=== PATIENT | male | born 1985 | race Caucasian/White ===

== ENCOUNTER 2017-03-12 08:30 | Emergency (ER) | payer MEDICAID ==
[~2017-03-12] VITALS: Ht 170.2 cm; Wt 71.0 kg
[~2017-03-12 08:30] MED LIST: TRAM50TA2 PO
[2017-03-12 08:34] VITALS: Ht 170.2 cm; Wt 71.0 kg
[2017-03-12] MEDS ORDERED: HYDROCODONE/APAP (5/325) TAB PO ONE (09:00)
[2017-03-12] MEDS ORDERED: IBUPROFEN 600 MG TAB PO ONE (09:00)
--- NOTE | 2017-03-12 09:27 | RADRPT ---
PROCEDURE: Left knee radiographs. CLINICAL INDICATION: Trauma due to a soccer injury. Left knee pain. TECHNIQUE: Three views. Weight bearing. Frontal, lateral, and Oblique. COMPARISON: No prior studies are available for comparison. FINDINGS: There is no fracture or dislocation. The soft tissues are normal. Articular surfaces are intact. There is no lytic or blastic lesion. There is no radiopaque foreign body. IMPRESSION: 1. Normal images of the left knee. RPTAT: QQ .Rob Rebollar MD, Date Time Electronically viewed and signed by .Rob Rebollar MD, on 03/12/2017 09:27 .R/
[2017-03-12] MEDS ORDERED: HYDR-906 PO (09:33)
[2017-03-12] MEDS ORDERED: IBUP-1542 PO (09:33)
--- NOTE | 2017-03-12 09:47 | ERD ---
ER Documentation Chief Complaint Chief Complaint LEFT KNEE PAIN X2 WKS, WORSE AFTER PLAYING SOCCER YESTERDAY HPI 32-year-old male presents with noncontact left lateral knee pain for 2 weeks worse since last night. The pain is sharp, worse when he flexes it, better with extension at the left lateral aspect of the knee, and is worse with weightbearing. The patient states that he was playing soccer but denies any contact to the knee. He denies any fevers or chills. ROS All systems reviewed and are negative except as per history of present illness. Medications Home Meds Active Scripts Ibuprofen* (Motrin*) 600 Mg Tab, 600 MG PO Q6, #30 TAB Prov:EVELINA BENDER PA-C 03/12/17 Hydrocodone/Acetaminophen (Truxton 5-325 Tablet) 1 Each Tablet, 1 TAB PO Q6H Y for PAIN, #7 TAB Prov:EVELINA BENDER PA-C 03/12/17 Tramadol HCl (Tramadol HCl) 50 Mg Tablet, 50 MG PO Q6, #20 TAB Prov:VIVIEN JAMES MD 08/23/15 Allergies Allergies: Coded Allergies: No Known Allergy (Unverified , 08/23/15) PMhx/Soc History of Surgery: No Anesthesia Reaction: No Hx Neurological Disorder: No Hx Respiratory Disorders: No Hx Cardiac Disorders: No Hx Psychiatric Problems: No Hx Miscellaneous Medical Probl: No Hx Alcohol Use: Yes (occas) Hx Substance Use: No Hx Tobacco Use: No Smoking Status: Never smoker Physical Exam Vitals Vital Signs Date Time Temp Pulse Resp B/P Pulse Ox O2 Delivery O2 Flow Rate FiO2 03/12/17 08:34 98.1 70 18 144/89 98 Physical Exam General: Well-developed, well-nourished. The patient appears in no acute distress. HEENT: Head is normocephalic, atraumatic. No scleral icterus. Neck: Supple. Nontender. Lungs: Clear to auscultation. Normal air movement. Heart: Regular rate and rhythm. S1 and S2 are normal. No murmurs, gallops, or rubs. Abdomen: Nondistended. Extremities: Left lateral knee tenderness palpation, small effusion that can be appreciated at the lateral aspect, it is above the greater tubercle, there is no tenderness or bony deformity to the greater tubercle or tibial tuberosity. There is no joint line tenderness. Patient allows for passive range of motion Neurologic: Alert and oriented 3. No focal deficits. Normal speech and gait. Skin: Normal turgor. No rash or lesions. Results 24 hrs Current Medications Medications (Trade) Dose Ordered Sig/Vandana Route PRN Reason Start Time Stop Time Status Last Admin Dose Admin Acetaminophen/ Hydrocodone Bitart (Truxton (5/325)) 1 tab ONCE ONCE PO 03/12/17 09:00 03/12/17 09:01 DC Ibuprofen (Motrin) 600 mg ONCE ONCE PO 03/12/17 09:00 03/12/17 09:01 DC DIAGNOSTIC IMAGING REPORT Patient: JUAN PABLO LEVY : 1985 Age: 32 Sex: M MR #: [id number] DOS: 03/12/17 0847 Ordering MD: EVELINA BENDER PA-C Location: [facility] Room/Bed: PROCEDURE: Left knee radiographs. CLINICAL INDICATION: Trauma due to a soccer injury. Left knee pain. TECHNIQUE: Three views. Weight bearing. Frontal, lateral, and Oblique. COMPARISON: No prior studies are available for comparison. FINDINGS: There is no fracture or dislocation. The soft tissues are normal. Articular surfaces are intact. There is no lytic or blastic lesion. There is no radiopaque foreign body. IMPRESSION: 1. Normal images of the left knee. RPTAT: QQ .Rob Rebollar MD, Date Time Electronically viewed and signed by .Rob Rebollar MD, on 03/12/2017 09:27 .R/ CC: EVELINA BENDER PA-C Procedures/MDM ED course: Patient was given ibuprofen and Truxton. Patient's left knee was placed in a knee immobilizer and he was given crutches to be weightbearing as tolerated. Splint Assessment: Neurovascularly intact post splint placement with good fit. Medical decision makin-year-old male presents with left-sided knee pain, is at the lateral aspect. No bony deformities, no acute fracture dislocation. There is no warmth erythema to indicate a septic joint, he does allow for passive range of motion. Patient's examination is most consistent with a knee sprain, he was placed in a knee immobilizer and crutches, and was advised to follow-up with orthopedics by the end of this week. Departure Diagnosis: Primary Impression: Knee pain Condition: Good Patient Instructions: Knee Sprain Referrals: TRUNG DONG MD Additional Instructions: [facility]TOPED[facility] Specialist:Usted tiene chris condicin mdica que requiere que stacey a un especialista dentro de los prximos 1-2 julien.POR FAVOR,CON MOORE SEGUIMIENTO DE PRIMARIA PHSICIAN refferal. SI USTED NO TIENE UN MDICO GENERAL Y / O USTED NO PUEDE PAGAR paul a un mdico,los siguientes ash RECURSOS sido suministrado a usted. ES MOORE RESPONSABILIDAD PARA SER VISTOS POR EL ESPECIALISTA: EVELINA BENDER PA-C Mar 12, 2017 09:47
== END 2017-03-12 09:56 | disposition home or self-care (01) ==
LOC: FTE 08:30
DX: M25.562 Pain in left knee (principal)
CPT/HCPCS: 29505; 73562; Z7502; Z7610